=== PATIENT | male | born 1945 | race Caucasian/White ===

== ENCOUNTER 2017-04-13 18:57 | Emergency (ER) | payer MEDICARE ==
--- NOTE | 2017-04-13 19:18 | RADIOLOGY REPORT ---
HISTORY: Shortness breath COMPARISON: None. FINDINGS: 2 views of the chest obtained. Heart size within normal limits. Prior median sternotomy. Consolidativ e opacity in the lingula suggestive of pneumonia. Right sided pleural thickening without definite eff usion on lateral. Calcifications along bilateral hemidiaphragms suggests prior asbestos exposure. No pneumothorax. IMPRESSION: 1. Consolidative opacity in the lingular suggestive of pneumonia. Follow-up to resolution recommended . 2. 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 Final Electronic Signature: This report was electronically signed by Uche Hernandez MD on 04/13/2017 7:15 PM. aki /
--- NOTE | 2017-04-13 20:48 | ER NURSING DOCUMENTATION ---
Nurse's Notes [facility] Name:Olaf Wang Age:71 yrs Sex:Male :1945 Arrival Date:04/13/2017 Time:18:57 Bed4 Private MD: Diagnosis:Hypoxia Presentation: 04/13 19:09 Presenting complaint: Patient states: up to altitude today, c/o mild shortness of lb breath. denies cough. o2 sat at home 80's. Transition of care: patient was not received from another setting of care. Notified ED Physician of Shreyas Alcazar notified. 19:09 Acuity: NAT 3 lb 19:09 Method Of Arrival: Walk In lb Triage Assessment: 19:12 General: Appears in no apparent distress, Behavior is appropriate for age, pleasant. lb Pain: Denies pain. Cardiovascular: Rhythm is sinus tachycardia. Respiratory: Airway is patent Trachea midline Respiratory effort is even, unlabored, Respiratory pattern is regular, symmetrical, Breath sounds are clear bilaterally. Reports shortness of breath Onset: The symptoms/episode began/occurred just prior to arrival, the patient has mild shortness of breath. GI: No deficits noted. : No deficits noted. Derm: No deficits noted. Musculoskeletal: No deficits noted. Historical: - Allergies: PENICILLINS; - Home Meds: 1. sertraline oral 2. venlafaxine oral 3. Alprazolam Oral 4. Flomax Oral - PMHx: pulmonary fibrosis; - PSHx: HERNIA REPAIR; pericardectomy; colon bypass; - Tetanus: < 10 years. - Ebola Screening: : Patient denies exposure to infectious person. Patient denies travel to an Ebola-affected area in the 21 days before illness onset. No symptoms or risks identified at this time. . - Immunization history: Pneumococcal vaccine is up to date, Flu Vaccine < 1 year. - Social history: Smoking status: Patient states was never smoker of tobacco. Patient uses alcohol only on a social basis. - Code Status:: Full code. Screenin:14 Infectious Disease Risk None. Abuse screen: Denies threats or abuse. Denies injuries lb from another. Nutritional screening: No deficits noted. Assessment: 19:13 See Triage Assessment done by same RN. Cardiovascular: No deficits noted. Rhythm is lb sinus tachycardia. Vital Signs: 19:13 BP 170 / 93; Pulse 122; Resp 20; Pulse Ox 79% on R/A; Weight 120.2 kg; Height 5 ft. 5 lb in. (165.10 cm); Pain 0/10; 19:14 Pulse Ox 92% on 2 lpm NC; lb 20:18 BP 143 / 75; Pulse 108; Resp 18; Pulse Ox 96% on 2 lpm NC; Pain 0/10; lb 20:46 BP 143 / 75; Pulse 108; Resp 18; Pulse Ox 96% on 2 lpm NC; Pain 0/10; lb 19:13 Body Mass Index 44.10 (120.20 kg, 165.10 cm) ED Course: 18:58 Patient arrived in ED. ma 19:01 Eddie Pritchett MD is Attending Physician. devora 19:09 Elizabeth Trejo is Primary Nurse. 19:10 Triage completed. 19:14 Valuables Remains with patient Patient has correct armband on for positive lb identification. Bed in low position. 19:16 CXR 2V [id number] In Process Unspecified. EDMS 19:29 Patient moved back from radiology. vickie 19:51 [facility] contacted about home oxygen. [facility] stated they will be at hospital in [facility] approx 30 min. Administered Medications: No medications were administered Outcome: 20:08 Discharge ordered by . devora 20:46 Discharged to [facility] 20:46 Condition: good 20:46 Discharge Assessment: Patient awake, alert and oriented x 3. No cognitive and/or functional deficits noted. Patient verbalized understanding of disposition instructions. 20:46 Instructed on discharge instructions, follow up and referral plans. 20:47 Patient left the ED. 04/14 14:30 Discharge F/U Call: Unable to reach: non-working number st 14:31 Discharge F/U Call: Unable to reach: no answer st Signatures: Dispatcher [employer] EDMS Ale Vega, RN Eddie Diaz MD MD jm Abbott, Rosy johnston [place] [id number] Elizabeth Trejo Trish Jones [facility]
--- NOTE | 2017-04-13 20:48 | ER PHYSICIAN DOCUMENTATION ---
Physician Documentation [facility] Name:Olaf Wang Age:71 yrs Sex:Male :1945 Arrival Date:04/13/2017 Time:18:57 Bed4 Private MD: Eddie Smith Disposition: 04/13/17 20:08 Discharged to Home/Self Care. Impression: Hypoxia. - Condition is Good. - Discharge Instructions: Breath Shortness - DYSPNEA. - Medical Reconciliation form form. - Follow up: Private Physician; When: As needed; Reason: Continuance of care. - Problem is new. - Symptoms have improved. - Notes: Wear oxygen at all times while in [place] HPI: 04/13 21:12 This 71 yrs old Male presents to ER via Walk In with complaints of Breathing jm Difficulty. 21:12 The patient has shortness of breath at rest. Onset: The symptom(s)/episode jm began/occurred just prior to arrival. Duration: The symptoms are continuous. The patient's shortness of breath is alleviated by nothing. Associated signs and symptoms: Pertinent negatives: chest pain, non-productive cough. Pt here for SOB. Pt w hx of pulm fibrosis and immediately had SOB when he came up to altitude. Pt from and just got in today. . Historical: - Allergies: PENICILLINS; - Home Meds: 1. sertraline oral 2. venlafaxine oral 3. Alprazolam Oral 4. Flomax Oral - PMHx: pulmonary fibrosis; - PSHx: HERNIA REPAIR; pericardectomy; colon bypass; - Tetanus: < 10 years. - Ebola Screening: : Patient denies exposure to infectious person. Patient denies travel to an Ebola-affected area in the 21 days before illness onset. No symptoms or risks identified at this time. . - Immunization history: Pneumococcal vaccine is up to date, Flu Vaccine < 1 year. - Social history: Smoking status: Patient states was never smoker of tobacco. Patient uses alcohol only on a social basis. - Code Status:: Full code. ROS: 21:12 Cardiovascular: Negative for chest pain. jm 21:12 Respiratory: Positive for dyspnea on exertion, shortness of breath. Exam: 21:12 Constitutional: The patient appears alert, awake. jm 21:12 Cardiovascular: Exam negative for Rate: tachycardic, Rhythm: regular. 21:12 Respiratory: the patient does not display signs of respiratory distress, Respirations: normal, Breath sounds: wheezing, that is mild, is scattered. Vital Signs: 19:13 BP 170 / 93; Pulse 122; Resp 20; Pulse Ox 79% on R/A; Weight 120.2 kg; Height 5 ft. 5 lb in. (165.10 cm); Pain 0/10; 19:14 Pulse Ox 92% on 2 lpm NC; lb 20:18 BP 143 / 75; Pulse 108; Resp 18; Pulse Ox 96% on 2 lpm NC; Pain 0/10; lb 20:46 BP 143 / 75; Pulse 108; Resp 18; Pulse Ox 96% on 2 lpm NC; Pain 0/10; lb 19:13 Body Mass Index 44.10 (120.20 kg, 165.10 cm) lb MDM: 19:01 Patient medically screened. 21:13 Differential diagnosis: asthma, chronic lung disease. Data reviewed: vital signs, nurses notes, and as a result, I will discharge patient. Counseling: I had a detailed discussion with the patient and/or guardian regarding: the historical points, exam findings, and any diagnostic results supporting the discharge/admit diagnosis. ED course: Pt qualifies for 02 w dx of pulm fibrosis. [facility] to provide. CXR looks like fibrosis to me. . 04/13 19:16 Order name: CXR [id number] EDCT 04/13 19:02 Order name: Oxygen; Complete Time: 19:14 devora 04/13 19:02 Order name: Pulse Ox Continuous; Complete Time: 19:14 Dispensed Medications: No medications were administered Signatures: Eddie Pritchett MD MD jm Bollock, Lynda lb
== END 2017-04-13 20:48 | disposition home or self-care (01) ==
LOC: ER 18:57
DX: R09.02 Hypoxemia (principal); R06.00 Dyspnea, unspecified; R06.02 Shortness of breath; J84.10 Pulmonary fibrosis, unspecified; Z79.899 Other long term (current) drug therapy
CPT/HCPCS: 71020; 99283; 99284